=== PATIENT | male | born 1945 | race Caucasian/White ===

== ENCOUNTER 2021-03-28 14:16 | Inpatient (IN) | payer MEDICARE, BC ==
[2021-03-28] MEDS ORDERED: Ondansetron ODT 4 MG TAB PO PRN (16:58)
[2021-03-28] MEDS: Zolpidem Tartrate 5 MG TAB PO PRN (20:55)
[2021-03-28] MEDS: Famotidine 20 MG TAB PO SCH (20:55)
[2021-03-28] MEDS: Sodium Chloride 0.65% Nasal 44 ML BOT EA NARE SCH (20:56)
[2021-03-28] MEDS: Acetaminophen 325 MG TAB PO PRN (21:02)
[2021-03-29] MEDS: Famotidine 20 MG TAB PO SCH ×2 (08:48→21:00)
[2021-03-29] MEDS: Meloxicam 7.5 MG TAB PO SCH (08:48)
[2021-03-29] MEDS: Tamsulosin HCl 0.4 MG CAP PO SCH (08:50)
[2021-03-29] MEDS: Lisinopril 10 MG TAB PO SCH (08:50)
[2021-03-29] MEDS: Aspirin 81 mg Enteric Coated Tablet PO SCH (08:51)
[2021-03-29] MEDS: Guaifenesin DM 100-10/5 ML UDCUP PO PRN ×2 (12:25→21:00)
[2021-03-29] MEDS: Acetaminophen 325 MG TAB PO PRN (16:09)
[2021-03-29] MEDS: Zolpidem Tartrate 5 MG TAB PO PRN (21:00)
[2021-03-29] MEDS: Sodium Chloride 0.65% Nasal 44 ML BOT EA NARE SCH (21:01)
[2021-03-30] MEDS: Acetaminophen 325 MG TAB PO PRN ×3 (01:57→15:42)
[2021-03-30 02:42] LABS: #Basophils 0.1 thou/uL (0.0-0.2); #Eosinphils 0.1 thou/uL (0.0-0.7); #Lymphocytes 0.2 thou/uL (1.20-3.40); #Monocytes 0.5 thou/uL (0.11-0.59); #Neutrophils 5.7 thou/uL (1.40-6.50); %Basophils 1.6 % (0.0-1.0); %Eosinophils 0.9 % (0.0-10.0); %Lymphocytes 3.6 % (21.0-51.0); %Monocytes 7.1 % (0.0-10.0); %Neutrophils 86.8 % (42.0-75.0); Hemoglobin 11.5 g/dL (14.0-18.0); Mean Corpuscular HGB CONC 34.7 g/dL (32.0-36.0); Mean Corpuscular Hemoglobin 31.1 pg (27.0-31.0); Mean Corpuscular Volume 89.6 fL (78.0-98.0); Platelet Count 170 thou/uL (130-400); RBC Distribution Width 11.3 % (11.5-14.5); Red Blood Cell (RBC) Count 3.71 mill/uL (4.70-6.10); White Blood Cell (WBC) Count 6.5 thou/uL (4.8-10.8)
[2021-03-30 02:58] LABS: ALT (SGPT) 21 U/L (8-55); AST (SGOT) 22 U/L (5-34); Albumin 3.3 g/dL (3.4-4.8); Alkaline Phosphatase 54 U/L (40-110); Anion Gap 13 mmol/L (10-20); BUN (Urea Nitrogen) 20 mg/dL (8.4-25.7); Bilirubin, Total 0.8 mg/dL (0.2-1.2); Calc. Creatinine Clearance 76 mL/min (70-130); Calcium 8.4 mg/dL (7.8-10.44); Carbon Dioxide 22 mmol/L (23-31); Chloride 101 mmol/L (98-107); Globulin 2.6 g/dL (2.4-3.5); Glucose 95 mg/dL (83-110); Potassium 4.6 mmol/L (3.5-5.1); Protein, Total 5.9 g/dL (5.8-8.1); Sodium 131 mmol/L (136-145)
[2021-03-30] MEDS: Meloxicam 7.5 MG TAB PO SCH (08:32)
[2021-03-30] MEDS: Famotidine 20 MG TAB PO SCH ×2 (08:32→20:39)
[2021-03-30] MEDS: Tamsulosin HCl 0.4 MG CAP PO SCH (08:32)
[2021-03-30] MEDS: Lisinopril 10 MG TAB PO SCH (08:32)
[2021-03-30] MEDS: Aspirin 81 mg Enteric Coated Tablet PO SCH (08:32)
[2021-03-30 10:28] LABS: Bilirubin Negative (Negative); Blood, Urine Negative (Negative); Clarity Clear (Clear); Glucose, Urine (Dipstick) Negative (Negative); Ketone, Urine Negative (Negative); Leukocyte Negative (Negative); Nitrite Negative (Negative); Protein, Urine (Dipstick) Negative (Neg-Trace); Urobilinogen 0.2 mg/dL (Less than 2)
[2021-03-30 10:30] LABS: Urine Culture Reflex No No
[2021-03-30 10:36] LABS: Bacteria/HPF Rare-Few HPF (None Seen); RBC/HPF 0-3 HPF (0-3); Squamous Epithelial 0-3 HPF (0-3); WBC/HPF None Seen HPF (0-3)
[2021-03-30] MEDS ORDERED: clonazePAM 0.5 MG TAB PO SCH (15:00)
[2021-03-30] MEDS ORDERED: Zinc Sulfate 220 MG CAP PO SCH (15:30)
[2021-03-30] MEDS ORDERED: Ascorbic Acid 500 mg Chewable Tablet PO SCH (15:30)
[2021-03-30] MEDS ORDERED: Cholecalciferol 1,000 UNITS (25 MCG) TAB PO SCH (15:30)
[2021-03-30] MEDS: Melatonin 3 MG TAB PO PRN (20:39)
[2021-03-30] MEDS: Sodium Chloride 0.65% Nasal 44 ML BOT EA NARE SCH (20:40)
[2021-03-31] MEDS: Acetaminophen 325 MG TAB PO PRN ×2 (00:38→10:14)
[2021-03-31] MEDS ORDERED: Cholecalciferol 1,000 UNITS (25 MCG) TAB PO SCH (09:00)
[2021-03-31] MEDS: Zinc Sulfate 220 MG CAP PO SCH (10:13)
[2021-03-31] MEDS: Famotidine 20 MG TAB PO SCH ×2 (10:15→20:30)
[2021-03-31] MEDS: Lisinopril 10 MG TAB PO SCH (10:15)
[2021-03-31] MEDS: Ascorbic Acid 500 mg Chewable Tablet PO SCH (10:16)
[2021-03-31] MEDS: Meloxicam 7.5 MG TAB PO SCH (10:16)
[2021-03-31] MEDS: Tamsulosin HCl 0.4 MG CAP PO SCH (10:17)
[2021-03-31] MEDS: Aspirin 81 mg Enteric Coated Tablet PO SCH (10:17)
[2021-03-31] MEDS: Melatonin 3 MG TAB PO PRN (20:32)
[2021-03-31] MEDS: clonazePAM 0.5 MG TAB PO PRN (20:34)
[2021-03-31] MEDS: Sodium Chloride 0.65% Nasal 44 ML BOT EA NARE SCH (20:34)
[2021-04-01] MEDS: clonazePAM 0.5 MG TAB PO PRN ×2 (09:29→20:22)
[2021-04-01] MEDS: Cholecalciferol (Vitamin D3) 5,000 UNITS CAPSULE PO SCH (09:29)
[2021-04-01] MEDS: Tamsulosin HCl 0.4 MG CAP PO SCH (09:29)
[2021-04-01] MEDS: Aspirin 81 mg Enteric Coated Tablet PO SCH (09:29)
[2021-04-01] MEDS: Ascorbic Acid 500 mg Chewable Tablet PO SCH (09:29)
[2021-04-01] MEDS: Lisinopril 10 MG TAB PO SCH (09:30)
[2021-04-01] MEDS: Meloxicam 7.5 MG TAB PO SCH (09:30)
[2021-04-01] MEDS: Zinc Sulfate 220 MG CAP PO SCH (09:30)
[2021-04-01] MEDS: Famotidine 20 MG TAB PO SCH ×2 (09:30→20:22)
[2021-04-01] MEDS: Sodium Chloride 0.65% Nasal 44 ML BOT EA NARE SCH (20:22)
[2021-04-02] MEDS: Acetaminophen 325 MG TAB PO PRN (07:38)
[2021-04-02] MEDS: Tamsulosin HCl 0.4 MG CAP PO SCH ×2 (08:32→11:52)
[2021-04-02] MEDS: Ascorbic Acid 500 mg Chewable Tablet PO SCH (08:32)
[2021-04-02] MEDS: Lisinopril 10 MG TAB PO SCH ×2 (08:32→09:51)
[2021-04-02] MEDS: Famotidine 20 MG TAB PO SCH ×2 (08:32→20:21)
[2021-04-02] MEDS: Cholecalciferol (Vitamin D3) 5,000 UNITS CAPSULE PO SCH (08:32)
[2021-04-02] MEDS: Aspirin 81 mg Enteric Coated Tablet PO SCH (08:32)
[2021-04-02] MEDS: Zinc Sulfate 220 MG CAP PO SCH (08:32)
[2021-04-02] MEDS: Meloxicam 7.5 MG TAB PO SCH (08:32)
[2021-04-02 08:39] LABS: Anion Gap 16 mmol/L (10-20); BUN (Urea Nitrogen) 28 mg/dL (8.4-25.7); Calc. Creatinine Clearance 64 mL/min (70-130); Calcium 8.3 mg/dL (7.8-10.44); Carbon Dioxide 21 mmol/L (23-31); Chloride 99 mmol/L (98-107); Glucose 89 mg/dL (83-110); Sodium 131 mmol/L (136-145)
[2021-04-02 09:09] LABS: #Eosinphils 0.1 thou/uL (0.0-0.7); #Lymphocytes 0.3 thou/uL (1.20-3.40); #Monocytes 0.4 thou/uL (0.11-0.59); #Neutrophils 3.8 thou/uL (1.40-6.50); %Eosinophils 2.1 % (0.0-10.0); %Lymphocytes 6.7 % (21.0-51.0); %Monocytes 7.5 % (0.0-10.0); %Neutrophils 82.7 % (42.0-75.0); Hemoglobin 11.5 g/dL (14.0-18.0); Mean Corpuscular HGB CONC 33.4 g/dL (32.0-36.0); Mean Corpuscular Hemoglobin 30.1 pg (27.0-31.0); Mean Corpuscular Volume 90.2 fL (78.0-98.0); Mean Platelet Volume 6.9 fL (7.4-10.4); Platelet Count 144 thou/uL (130-400); RBC Distribution Width 10.9 % (11.5-14.5); White Blood Cell (WBC) Count 4.6 thou/uL (4.8-10.8)
[2021-04-02] MEDS: Sodium Chloride 0.65% Nasal 44 ML BOT EA NARE SCH (20:21)
[2021-04-02] MEDS: Melatonin 3 MG TAB PO PRN (23:19)
[2021-04-03] MEDS: Lisinopril 10 MG TAB PO SCH (09:03)
[2021-04-03] MEDS: Meloxicam 7.5 MG TAB PO SCH (09:05)
[2021-04-03] MEDS: Aspirin 81 mg Enteric Coated Tablet PO SCH (09:05)
[2021-04-03] MEDS: Cholecalciferol (Vitamin D3) 5,000 UNITS CAPSULE PO SCH (09:05)
[2021-04-03] MEDS: Zinc Sulfate 220 MG CAP PO SCH (09:05)
[2021-04-03] MEDS: Tamsulosin HCl 0.4 MG CAP PO SCH (09:05)
[2021-04-03] MEDS: Ascorbic Acid 500 mg Chewable Tablet PO SCH (09:06)
[2021-04-03] MEDS: Famotidine 20 MG TAB PO SCH ×2 (09:06→20:36)
[2021-04-03] MEDS: Acetaminophen 325 MG TAB PO PRN (09:48)
[2021-04-03] MEDS: Sodium Chloride 0.65% Nasal 44 ML BOT EA NARE SCH (20:36)
[2021-04-04] MEDS: Melatonin 3 MG TAB PO PRN (00:05)
[2021-04-04] MEDS: Famotidine 20 MG TAB PO SCH ×2 (08:06→21:16)
[2021-04-04] MEDS: Cholecalciferol (Vitamin D3) 5,000 UNITS CAPSULE PO SCH (08:06)
[2021-04-04] MEDS: Ascorbic Acid 500 mg Chewable Tablet PO SCH (08:06)
[2021-04-04] MEDS: Aspirin 81 mg Enteric Coated Tablet PO SCH (08:06)
[2021-04-04] MEDS: Lisinopril 10 MG TAB PO SCH (08:07)
[2021-04-04] MEDS: Meloxicam 7.5 MG TAB PO SCH (08:07)
[2021-04-04] MEDS: Zinc Sulfate 220 MG CAP PO SCH (08:08)
[2021-04-04] MEDS: Acetaminophen 325 MG TAB PO PRN (08:08)
[2021-04-04] MEDS: Tamsulosin HCl 0.4 MG CAP PO SCH (08:08)
[2021-04-04 13:23] LABS: #Basophils 0.1 thou/uL (0.0-0.2); #Eosinphils 0.2 thou/uL (0.0-0.7); #Lymphocytes 0.5 thou/uL (1.20-3.40); #Monocytes 0.5 thou/uL (0.11-0.59); %Basophils 0.9 % (0.0-1.0); %Eosinophils 3.5 % (0.0-10.0); %Lymphocytes 8.5 % (21.0-51.0); %Neutrophils 79.2 % (42.0-75.0); Hemoglobin 11.8 g/dL (14.0-18.0); Mean Corpuscular HGB CONC 33.3 g/dL (32.0-36.0); Mean Corpuscular Hemoglobin 30.3 pg (27.0-31.0); Mean Corpuscular Volume 90.9 fL (78.0-98.0); Mean Platelet Volume 7.5 fL (7.4-10.4); Platelet Count 153 thou/uL (130-400); RBC Distribution Width 10.9 % (11.5-14.5); White Blood Cell (WBC) Count 6.3 thou/uL (4.8-10.8)
[2021-04-04 14:01] LABS: Anion Gap 18 mmol/L (10-20); BUN (Urea Nitrogen) 33 mg/dL (8.4-25.7); Calc. Creatinine Clearance 60 mL/min (70-130); Calcium 8.9 mg/dL (7.8-10.44); Carbon Dioxide 22 mmol/L (23-31); Chloride 99 mmol/L (98-107); Glucose 96 mg/dL (83-110); Potassium 5.1 mmol/L (3.5-5.1); Sodium 134 mmol/L (136-145)
[2021-04-04] MEDS: Sodium Chloride 0.65% Nasal 44 ML BOT EA NARE SCH (21:00)
[2021-04-05] MEDS: clonazePAM 0.5 MG TAB PO PRN (02:03)
[2021-04-05] MEDS: Acetaminophen 325 MG TAB PO PRN (02:04)
[2021-04-05] MEDS: Ascorbic Acid 500 mg Chewable Tablet PO SCH (08:59)
[2021-04-05] MEDS: Famotidine 20 MG TAB PO SCH ×2 (09:00→20:29)
[2021-04-05] MEDS: Zinc Sulfate 220 MG CAP PO SCH (09:00)
[2021-04-05] MEDS: Tamsulosin HCl 0.4 MG CAP PO SCH (09:00)
[2021-04-05] MEDS: Cholecalciferol (Vitamin D3) 5,000 UNITS CAPSULE PO SCH (09:00)
[2021-04-05] MEDS: Meloxicam 7.5 MG TAB PO SCH (09:00)
[2021-04-05] MEDS: Aspirin 81 mg Enteric Coated Tablet PO SCH (09:00)
[2021-04-05] MEDS: Melatonin 3 MG TAB PO PRN (20:29)
[2021-04-05] MEDS: Sodium Chloride 0.65% Nasal 44 ML BOT EA NARE SCH (20:30)
[2021-04-06] MEDS: Zinc Sulfate 220 MG CAP PO SCH (08:46)
[2021-04-06] MEDS: Ascorbic Acid 500 mg Chewable Tablet PO SCH (08:46)
[2021-04-06] MEDS: Tamsulosin HCl 0.4 MG CAP PO SCH (08:47)
[2021-04-06] MEDS: Cholecalciferol (Vitamin D3) 5,000 UNITS CAPSULE PO SCH (08:47)
[2021-04-06] MEDS: Meloxicam 7.5 MG TAB PO SCH (08:47)
[2021-04-06] MEDS: Aspirin 81 mg Enteric Coated Tablet PO SCH (08:47)
[2021-04-06] MEDS: Famotidine 20 MG TAB PO SCH ×2 (08:51→20:11)
[2021-04-06] MEDS: Sodium Chloride 0.65% Nasal 44 ML BOT EA NARE SCH (20:11)
[2021-04-06] MEDS: Melatonin 3 MG TAB PO PRN (20:11)
[2021-04-06] MEDS: Senokot S 8.6-50 MG TAB PO PRN (22:03)
[2021-04-07] MEDS: Acetaminophen 325 MG TAB PO PRN (01:21)
[2021-04-07] MEDS: clonazePAM 0.5 MG TAB PO PRN (01:22)
[2021-04-07] MEDS: Ascorbic Acid 500 mg Chewable Tablet PO SCH (08:00)
[2021-04-07] MEDS: Aspirin 81 mg Enteric Coated Tablet PO SCH (08:00)
[2021-04-07] MEDS: Cholecalciferol (Vitamin D3) 5,000 UNITS CAPSULE PO SCH (08:00)
[2021-04-07] MEDS: Famotidine 20 MG TAB PO SCH ×2 (08:00→20:18)
[2021-04-07] MEDS: Meloxicam 7.5 MG TAB PO SCH (08:00)
[2021-04-07] MEDS: Zinc Sulfate 220 MG CAP PO SCH (08:00)
[2021-04-07] MEDS: Tamsulosin HCl 0.4 MG CAP PO SCH (08:00)
[2021-04-07 09:38] LABS: #Basophils 0.1 thou/uL (0.0-0.2); #Eosinphils 0.1 thou/uL (0.0-0.7); #Lymphocytes 0.5 thou/uL (1.20-3.40); #Monocytes 0.5 thou/uL (0.11-0.59); #Neutrophils 4.7 thou/uL (1.40-6.50); %Basophils 1.5 % (0.0-1.0); %Eosinophils 2.4 % (0.0-10.0); %Lymphocytes 8.6 % (21.0-51.0); %Monocytes 8.9 % (0.0-10.0); %Neutrophils 78.6 % (42.0-75.0); Hemoglobin 11.6 g/dL (14.0-18.0); Mean Corpuscular HGB CONC 33.2 g/dL (32.0-36.0); Mean Corpuscular Hemoglobin 29.9 pg (27.0-31.0); Mean Corpuscular Volume 89.9 fL (78.0-98.0); Mean Platelet Volume 6.7 fL (7.4-10.4); Platelet Count 142 thou/uL (130-400); RBC Distribution Width 11.1 % (11.5-14.5); Red Blood Cell (RBC) Count 3.89 mill/uL (4.70-6.10)
[2021-04-07] MEDS ORDERED: Clopidogrel Bisulfate 75 MG TAB PO SCH (09:45)
[2021-04-07 09:56] LABS: ALT (SGPT) 12 U/L (8-55); AST (SGOT) 16 U/L (5-34); Albumin 3.3 g/dL (3.4-4.8); Alkaline Phosphatase 63 U/L (40-110); Anion Gap 13 mmol/L (10-20); BUN (Urea Nitrogen) 26 mg/dL (8.4-25.7); Bilirubin, Total 0.8 mg/dL (0.2-1.2); Calc. Creatinine Clearance 61 mL/min (70-130); Calcium 9.7 mg/dL (7.8-10.44); Carbon Dioxide 25 mmol/L (23-31); Chloride 102 mmol/L (98-107); Globulin 2.7 g/dL (2.4-3.5); Glucose 102 mg/dL (83-110); Phosphorus 4.5 mg/dL (2.3-4.7); Sodium 135 mmol/L (136-145)
[2021-04-07] MEDS: Sodium Chloride 0.65% Nasal 44 ML BOT EA NARE SCH (20:18)
[2021-04-07] MEDS: Melatonin 3 MG TAB PO PRN (23:34)
[2021-04-08] MEDS: Clopidogrel Bisulfate 75 MG TAB PO SCH (09:22)
[2021-04-08] MEDS: Tamsulosin HCl 0.4 MG CAP PO SCH (09:22)
[2021-04-08] MEDS: Zinc Sulfate 220 MG CAP PO SCH (09:22)
[2021-04-08] MEDS: Meloxicam 7.5 MG TAB PO SCH (09:23)
[2021-04-08] MEDS: Aspirin 81 mg Enteric Coated Tablet PO SCH (09:23)
[2021-04-08] MEDS: Cholecalciferol (Vitamin D3) 5,000 UNITS CAPSULE PO SCH (09:23)
[2021-04-08] MEDS: Ascorbic Acid 500 mg Chewable Tablet PO SCH (09:23)
[2021-04-08] MEDS: Famotidine 20 MG TAB PO SCH ×2 (09:23→20:22)
[2021-04-08] MEDS: Sodium Chloride 0.65% Nasal 44 ML BOT EA NARE SCH (20:22)
[2021-04-09] MEDS: Clopidogrel Bisulfate 75 MG TAB PO SCH (09:27)
[2021-04-09] MEDS: Meloxicam 7.5 MG TAB PO SCH (09:27)
[2021-04-09] MEDS: Famotidine 20 MG TAB PO SCH ×2 (09:27→20:04)
[2021-04-09] MEDS: Zinc Sulfate 220 MG CAP PO SCH (09:27)
[2021-04-09] MEDS: Aspirin 81 mg Enteric Coated Tablet PO SCH (09:28)
[2021-04-09] MEDS: Ascorbic Acid 500 mg Chewable Tablet PO SCH (09:29)
[2021-04-09] MEDS: Tamsulosin HCl 0.4 MG CAP PO SCH (09:29)
[2021-04-09] MEDS: Cholecalciferol (Vitamin D3) 5,000 UNITS CAPSULE PO SCH (09:29)
[2021-04-09] MEDS: Sodium Chloride 0.65% Nasal 44 ML BOT EA NARE SCH (20:04)
[2021-04-10] MEDS: Melatonin 3 MG TAB PO PRN (00:50)
[2021-04-10] MEDS: clonazePAM 0.5 MG TAB PO PRN ×2 (00:50→23:54)
[2021-04-10] MEDS: Tamsulosin HCl 0.4 MG CAP PO SCH (08:33)
[2021-04-10] MEDS: Famotidine 20 MG TAB PO SCH ×2 (08:33→20:46)
[2021-04-10] MEDS: Meloxicam 7.5 MG TAB PO SCH (08:33)
[2021-04-10] MEDS: Cholecalciferol (Vitamin D3) 5,000 UNITS CAPSULE PO SCH (08:33)
[2021-04-10] MEDS: Aspirin 81 mg Enteric Coated Tablet PO SCH (08:34)
[2021-04-10] MEDS: Ascorbic Acid 500 mg Chewable Tablet PO SCH (08:34)
[2021-04-10] MEDS: Zinc Sulfate 220 MG CAP PO SCH (08:34)
[2021-04-10] MEDS: Clopidogrel Bisulfate 75 MG TAB PO SCH (08:34)
[2021-04-10] MEDS: Sodium Chloride 0.65% Nasal 44 ML BOT EA NARE SCH (20:47)
[2021-04-11] MEDS: Aspirin 81 mg Enteric Coated Tablet PO SCH (08:22)
[2021-04-11] MEDS: Ascorbic Acid 500 mg Chewable Tablet PO SCH (08:22)
[2021-04-11] MEDS: Famotidine 20 MG TAB PO SCH ×2 (08:22→21:41)
[2021-04-11] MEDS: Tamsulosin HCl 0.4 MG CAP PO SCH (08:22)
[2021-04-11] MEDS: Clopidogrel Bisulfate 75 MG TAB PO SCH (08:22)
[2021-04-11] MEDS: Zinc Sulfate 220 MG CAP PO SCH (08:22)
[2021-04-11] MEDS: Cholecalciferol (Vitamin D3) 5,000 UNITS CAPSULE PO SCH (08:22)
[2021-04-11] MEDS: Meloxicam 7.5 MG TAB PO SCH (08:23)
[2021-04-11] MEDS: Senokot S 8.6-50 MG TAB PO PRN (14:49)
[2021-04-11] MEDS: Sodium Chloride 0.65% Nasal 44 ML BOT EA NARE SCH (21:41)
[2021-04-11] MEDS: clonazePAM 0.5 MG TAB PO PRN (23:55)
[2021-04-11] MEDS: Melatonin 3 MG TAB PO PRN (23:55)
[2021-04-12] MEDS: Zinc Sulfate 220 MG CAP PO SCH (08:51)
[2021-04-12] MEDS: Senokot S 8.6-50 MG TAB PO PRN (08:51)
[2021-04-12] MEDS: Clopidogrel Bisulfate 75 MG TAB PO SCH (08:52)
[2021-04-12] MEDS: Aspirin 81 mg Enteric Coated Tablet PO SCH (08:52)
[2021-04-12] MEDS: Cholecalciferol (Vitamin D3) 5,000 UNITS CAPSULE PO SCH (08:52)
[2021-04-12] MEDS: Ascorbic Acid 500 mg Chewable Tablet PO SCH (08:52)
[2021-04-12] MEDS: Famotidine 20 MG TAB PO SCH ×2 (08:52→20:39)
[2021-04-12] MEDS: Meloxicam 7.5 MG TAB PO SCH (08:52)
[2021-04-12] MEDS: Tamsulosin HCl 0.4 MG CAP PO SCH (08:53)
[2021-04-12] MEDS: Sodium Chloride 0.65% Nasal 44 ML BOT EA NARE SCH (20:39)
[2021-04-13] MEDS: Ascorbic Acid 500 mg Chewable Tablet PO SCH (08:53)
[2021-04-13] MEDS: Famotidine 20 MG TAB PO SCH ×2 (08:54→21:25)
[2021-04-13] MEDS: Aspirin 81 mg Enteric Coated Tablet PO SCH (08:54)
[2021-04-13] MEDS: Clopidogrel Bisulfate 75 MG TAB PO SCH (08:54)
[2021-04-13] MEDS: Cholecalciferol (Vitamin D3) 5,000 UNITS CAPSULE PO SCH (08:54)
[2021-04-13] MEDS: Meloxicam 7.5 MG TAB PO SCH (08:55)
[2021-04-13] MEDS: Tamsulosin HCl 0.4 MG CAP PO SCH (08:57)
[2021-04-13] MEDS: Zinc Sulfate 220 MG CAP PO SCH (08:57)
[2021-04-13] MEDS: Sodium Chloride 0.65% Nasal 44 ML BOT EA NARE SCH (21:26)
[2021-04-13] MEDS: Melatonin 3 MG TAB PO PRN (23:31)
[2021-04-14] MEDS: Aspirin 81 mg Enteric Coated Tablet PO SCH (08:40)
[2021-04-14] MEDS: Zinc Sulfate 220 MG CAP PO SCH (08:40)
[2021-04-14] MEDS: Ascorbic Acid 500 mg Chewable Tablet PO SCH (08:40)
[2021-04-14] MEDS: Famotidine 20 MG TAB PO SCH ×2 (08:40→20:37)
[2021-04-14] MEDS: Meloxicam 7.5 MG TAB PO SCH (08:41)
[2021-04-14] MEDS: Tamsulosin HCl 0.4 MG CAP PO SCH (08:42)
[2021-04-14] MEDS: Clopidogrel Bisulfate 75 MG TAB PO SCH (08:44)
[2021-04-14] MEDS: Cholecalciferol (Vitamin D3) 5,000 UNITS CAPSULE PO SCH (08:44)
[2021-04-14] MEDS: Sodium Chloride 0.65% Nasal 44 ML BOT EA NARE SCH (20:37)
[2021-04-14 21:39] VITALS: BMI 26.0
[2021-04-15] MEDS: Aspirin 81 mg Enteric Coated Tablet PO SCH (09:20)
[2021-04-15] MEDS: Ascorbic Acid 500 mg Chewable Tablet PO SCH (09:20)
[2021-04-15] MEDS: Clopidogrel Bisulfate 75 MG TAB PO SCH (09:21)
[2021-04-15] MEDS: Meloxicam 7.5 MG TAB PO SCH (09:21)
[2021-04-15] MEDS: Famotidine 20 MG TAB PO SCH ×2 (09:21→21:20)
[2021-04-15] MEDS: Zinc Sulfate 220 MG CAP PO SCH (09:21)
[2021-04-15] MEDS: Cholecalciferol (Vitamin D3) 5,000 UNITS CAPSULE PO SCH (09:21)
[2021-04-15] MEDS: Tamsulosin HCl 0.4 MG CAP PO SCH (09:21)
[2021-04-15] MEDS: Sodium Chloride 0.65% Nasal 44 ML BOT EA NARE SCH (21:21)
[2021-04-15] MEDS: Melatonin 3 MG TAB PO PRN (23:21)
[2021-04-16 07:43] VITALS: BP 110/65; TEMP 97.7
[2021-04-16] MEDS: Tamsulosin HCl 0.4 MG CAP PO SCH (08:35)
[2021-04-16] MEDS: Cholecalciferol (Vitamin D3) 5,000 UNITS CAPSULE PO SCH (08:35)
[2021-04-16] MEDS: Meloxicam 7.5 MG TAB PO SCH (08:35)
[2021-04-16] MEDS: Ascorbic Acid 500 mg Chewable Tablet PO SCH (08:35)
[2021-04-16] MEDS: Zinc Sulfate 220 MG CAP PO SCH (08:35)
[2021-04-16] MEDS: Aspirin 81 mg Enteric Coated Tablet PO SCH (08:35)
[2021-04-16] MEDS: Famotidine 20 MG TAB PO SCH (08:35)
[2021-04-16] MEDS: Clopidogrel Bisulfate 75 MG TAB PO SCH (08:36)
== END 2021-04-16 16:20 | disposition home or self-care (01) | DRG 177 ==
LOC: MADMS 15:13
PROVIDERS: ADMIT Family Medicine; ATTEND Family Medicine
DX: U07.1 COVID-19 (principal); J12.82 Pneumonia due to coronavirus disease 2019; J96.01 Acute respiratory failure with hypoxia; J15.9 Unspecified bacterial pneumonia; C85.90 Non-Hodgkin lymphoma, unspecified, unspecified site; E87.1 Hypo-osmolality and hyponatremia; R53.1 Weakness; I48.0 Paroxysmal atrial fibrillation; F41.8 Other specified anxiety disorders; I10 Essential (primary) hypertension; I95.9 Hypotension, unspecified; Z79.82 Long term (current) use of aspirin; Z79.899 Other long term (current) drug therapy
CPT/HCPCS: 36415; 71045; 71046; 80048; 80053; 81001; 83735; 84100; 84443; 85025; 94640; J7620

== ENCOUNTER 2022-10-26 20:07 | Emergency (ER) | payer MEDICARE, BC ==
[2022-10-26 21:11] LABS: Anion Gap 13 mmol/L (10-20); BUN (Urea Nitrogen) 19 mg/dL (8.4-25.7); Calc. Creatinine Clearance 0 mL/min (70-130); Calcium 8.8 mg/dL (7.8-10.44); Carbon Dioxide 26 mmol/L (23-31); Chloride 103 mmol/L (98-107); Estimated GFR 47; Glucose 104 mg/dL (83-110); Hematocrit 40.5 % (42.0-52.0); Hemoglobin 13.4 g/dL (14.0-18.0); Mean Corpuscular HGB CONC 33.1 g/dL (32.0-36.0); Mean Corpuscular Hemoglobin 31.6 pg (27.0-31.0); Mean Corpuscular Volume 95.6 fl (78.0-98.0); Mean Platelet Volume 8.5 fL (7.4-10.4); Platelet Count 99 10x3/uL (130-400); Potassium 3.9 mmol/L (3.5-5.1); RBC Distribution Width 13.3 % (11.5-14.5); Red Blood Cell (RBC) Count 4.24 mill/uL (4.70-6.10); Sodium 138 mmol/L (136-145)
[2022-10-26] MEDS ORDERED: Acetaminophen 500 MG TAB ONE (21:21)
[2022-10-26 21:29] LABS: Band 7 % (5-11); Lymphocytes 9 % (21-51); MDiff Complete? YES; Monocytes 3 % (0-10); Neutrophil 80 % (42-75); Platelet Adequacy Comment Appears Decreased
[2022-10-26 21:33] LABS: SARS-CoV-2 NAA Rapid Test DETECTED (NotDetected)
[2022-10-26 21:38] LABS: Bilirubin Negative (Negative); Blood, Urine Negative (Negative); Clarity Clear (Clear); Glucose, Urine (Dipstick) Negative (Negative); Ketone, Urine Negative (Negative); Leukocyte Negative (Negative); Nitrite Negative (Negative); Protein, Urine (Dipstick) 30 mg/dL (Neg-Trace); Specific Gravity, Urine 1.025 (1.005-1.030); Urobilinogen 0.2 mg/dL (Less than 2); pH, Urine 5.5 (5.0-9.0)
[2022-10-26 21:46] LABS: CAUTI Indications for Culture Fever or rigors; RBC/HPF 0-3 HPF (0-3); WBC/HPF 0-3 HPF (0-3)
[2022-10-26 21:47] LABS: Bacteria/HPF Rare-Few HPF (None Seen)
[2022-10-26 21:48] LABS: Urine Culture Reflex No No
[2022-10-26] MEDS ORDERED: Sodium Chloride 0.9% 1,000 ML ONE (21:59)
[2022-10-26 23:31] LABS: Anion Gap 14 mmol/L (10-20); BUN (Urea Nitrogen) 19 mg/dL (8.4-25.7); Calc. Creatinine Clearance 0 mL/min (70-130); Calcium 7.9 mg/dL (7.8-10.44); Carbon Dioxide 21 mmol/L (23-31); Chloride 108 mmol/L (98-107); Estimated GFR 53; Glucose 104 mg/dL (83-110); Potassium 3.9 mmol/L (3.5-5.1); Sodium 139 mmol/L (136-145)
== END 2022-10-27 00:29 | disposition home or self-care (01) ==
LOC: MADERS 20:07
DX: U07.1 COVID-19 (principal); N17.9 Acute kidney failure, unspecified; I10 Essential (primary) hypertension; Z79.899 Other long term (current) drug therapy; Z79.82 Long term (current) use of aspirin
CPT/HCPCS: 71045; 80048; 81001; 85025; 87804; 96360; 96361; J7050; U0002

== ENCOUNTER 2023-04-14 23:07 | Emergency (ER) | payer MEDICARE, BC ==
[2023-04-14] MEDS ORDERED: Acetaminophen 500 MG TAB ONE (23:44)
[2023-04-14 23:53] LABS: Band 1 % (5-11); Eosinophils 1 % (0-10); Hematocrit 41.1 % (42.0-52.0); Hemoglobin 13.5 g/dL (14.0-18.0); Lymphocytes 14 % (21-51); MDiff Complete? YES; Mean Corpuscular HGB CONC 32.9 g/dL (32.0-36.0); Mean Corpuscular Hemoglobin 30.9 pg (27.0-31.0); Mean Platelet Volume 7.9 fL (7.4-10.4); Monocytes 10 % (0-10); Neutrophil 74 % (42-75); Platelet Adequacy Comment Appears Decreased; Platelet Count 105 10x3/uL (130-400); RBC Distribution Width 12.6 % (11.5-14.5); Red Blood Cell (RBC) Count 4.37 mill/uL (4.70-6.10); White Blood Cell (WBC) Count 8.5 10x3/uL (4.8-10.8)
[2023-04-15 00:02] LABS: ALT (SGPT) 14 U/L (8-55); AST (SGOT) 14 U/L (5-34); Albumin 4.2 g/dL (3.4-4.8); Alkaline Phosphatase 70 U/L (40-110); Anion Gap 16 mmol/L (10-20); BUN (Urea Nitrogen) 19 mg/dL (8.4-25.7); Bilirubin, Total 0.8 mg/dL (0.2-1.2); Calc. Creatinine Clearance 0 mL/min (70-130); Calcium 8.7 mg/dL (7.8-10.44); Carbon Dioxide 22 mmol/L (23-31); Chloride 102 mmol/L (98-107); Estimated GFR 46; Globulin 1.9 g/dL (2.4-3.5); Glucose 124 mg/dL (83-110); Protein, Total 6.1 g/dL (5.8-8.1); Sodium 136 mmol/L (136-145); Troponin I 0.011 ng/mL (< 0.028)
[2023-04-15 00:05] LABS: Bacteria/HPF 1+ HPF (None Seen); Bilirubin Negative (Negative); Blood, Urine Negative (Negative); CAUTI Indications for Culture Fever or rigors; Clarity Clear (Clear); Glucose, Urine (Dipstick) Negative (Negative); Ketone, Urine Negative (Negative); Leukocyte Negative (Negative); Nitrite Negative (Negative); Protein, Urine (Dipstick) 30 mg/dL (Neg-Trace); RBC/HPF None Seen HPF (0-3); Squamous Epithelial 0-3 HPF (0-3); Urobilinogen 0.2 mg/dL (Less than 2); WBC/HPF 0-3 HPF (0-3); pH, Urine 5.5 (5.0-9.0)
[2023-04-15 00:06] LABS: Urine Culture Reflex No No
[2023-04-15 00:18] LABS: SARS-CoV-2 E Target Negative; SARS-CoV-2 N2 Target Negative; SARS-CoV-2 NAA Rapid Test Not Detected (NotDetected); SARS-CoV-2 RdRP gene Negative
[2023-04-15] MEDS ORDERED: Sodium Chloride 0.9% 250 ML 250 ML ONE (00:23)
[2023-04-15] MEDS ORDERED: Azithromycin 500 MG VIAL ONE (00:23)
[2023-04-15] MEDS ORDERED: Sodium Chloride 0.9% 500 ML ONE (00:23)
[2023-04-15] MEDS ORDERED: Sodium Chloride 0.9% 100 ML ONE (00:23)
[2023-04-15] MEDS ORDERED: cefTRIAXone (ROCEPHIN) 2 GM VIAL ONE (00:23)
== END 2023-04-15 00:56 | disposition short-term general hospital (02) ==
LOC: MADERS 23:07
DX: J18.9 Pneumonia, unspecified organism (principal); N17.9 Acute kidney failure, unspecified; R94.31 Abnormal electrocardiogram [ECG] [EKG]; I48.91 Unspecified atrial fibrillation; I10 Essential (primary) hypertension; Z79.899 Other long term (current) drug therapy; Z79.82 Long term (current) use of aspirin
CPT/HCPCS: 71045; 80053; 81001; 83605; 84484; 85025; 87040; 87804; 93005; 94760; 96365; 96375; J0456; J0696; J3490; J7030; J7050; U0002